=== PATIENT | female | born 1990 | race Caucasian/White ===

== ENCOUNTER → 2018-02-03 | Outpatient (CLI) | payer OTHER ==
[~2018-02-03] MED LIST: GADOBUTROL 7.5 MMOL/7.5 ML PFS ONE
== END | disposition home or self-care (01) ==
LOC: RAD 13:01
PROVIDERS: ATTEND Neurological Surgery
DX: D32.0 Benign neoplasm of cerebral meninges (principal); Z98.890 Other specified postprocedural states
CPT/HCPCS: 70553; A9585

== ENCOUNTER 2019-04-07 14:00 | Outpatient (CLI) | payer OTHER ==
[2019-04-07] MEDS ORDERED: GADOBUTROL 7.5 MMOL/7.5 ML PFS ONE (14:41)
== END 2019-04-07 23:59 | disposition home or self-care (01) ==
LOC: RAD 14:00
PROVIDERS: ATTEND Neurological Surgery
DX: D32.0 Benign neoplasm of cerebral meninges (principal); Z98.890 Other specified postprocedural states
CPT/HCPCS: 70553; A9585

== ENCOUNTER 2019-05-26 07:12 | Outpatient (CLI) | payer OTHER | END 2019-05-26 23:59 | disposition home or self-care (01) | LOC: ROC 07:12 | PROVIDERS: ATTEND Radiology Radiation Oncology | DX: D32.0 Benign neoplasm of cerebral meninges (principal) | CPT/HCPCS: 99214; G0463 ==

== ENCOUNTER 2019-06-11 08:46 | Outpatient (CLI) | payer OTHER | END 2019-06-11 23:59 | disposition home or self-care (01) | LOC: CFH 08:46 | PROVIDERS: ATTEND Radiology Radiation Oncology | DX: G93.89 Other specified disorders of brain (principal); D32.0 Benign neoplasm of cerebral meninges; Z98.890 Other specified postprocedural states | CPT/HCPCS: 70553; A9585 ==

== ENCOUNTER → 2019-12-22 | Outpatient (CLI) | payer OTHER ==
[~2019-12-22] MED LIST changes: -GADOBUTROL 7.5 MMOL/7.5 ML PFS ONE; +GADOTERATE 7.5 MMOL/15 ML SYR ONE
== END | disposition home or self-care (01) ==
LOC: CFH 09:45
PROVIDERS: ATTEND Radiology Radiation Oncology
DX: D32.0 Benign neoplasm of cerebral meninges (principal); G93.89 Other specified disorders of brain
CPT/HCPCS: 70553; A9575

== ENCOUNTER → 2019-12-23 | Outpatient (CLI) | payer OTHER | END | disposition home or self-care (01) | LOC: ROC 07:59 | PROVIDERS: ATTEND Radiology Radiation Oncology | DX: D32.0 Benign neoplasm of cerebral meninges (principal) | CPT/HCPCS: 99213; G0463 ==

== ENCOUNTER 2020-12-21 10:38 | Outpatient (CLI) | payer OTHER ==
[2020-12-21] MEDS ORDERED: GADOTERATE 7.5 MMOL/15 ML SYR ONE (11:56)
== END 2020-12-21 23:59 | disposition home or self-care (01) ==
LOC: CFH 10:38
PROVIDERS: ATTEND Radiology Radiation Oncology
DX: D32.0 Benign neoplasm of cerebral meninges (principal)
CPT/HCPCS: 70553; A9575

== ENCOUNTER → 2020-12-28 | Outpatient (CLI) | payer OTHER | END | disposition home or self-care (01) | LOC: ROC 08:38 | PROVIDERS: ATTEND Radiology Radiation Oncology | DX: Z08 Encounter for follow-up examination after completed treatment for malignant neoplasm (principal); D32.0 Benign neoplasm of cerebral meninges | CPT/HCPCS: 99213; G0463 ==